=== PATIENT | female | born 1940 | race Caucasian/White ===

== ENCOUNTER 2018-06-28 13:42 | Emergency (ER) | payer MEDICARE, OTHER ==
[2018-06-28 14:39] LABS: ABS Basophils 0 10^3/ul (0-0.2); ABS Eosinophils 0.1 10^3/ul (0-0.6); ABS Lymphocytes 2.4 10^3/ul (1.0-4.8); ABS Monocytes 0.5 10^3/ul (0-0.8); ABS Neutrophils 4.7 10^3/ul (1.5-7.7); ABS Nucleated RBC 0 10^3/ul; Eosinophil % 1.3 %; Hematocrit 41 % (33-41); Hemoglobin 13.9 g/dL (12.0-16.0); Lymphocyte % 30.7 %; Mean Corpuscular HGB Conc 34 g/dL (31-36); Mean Corpuscular Hemoglobin 31 pg (27-31); Mean Corpuscular Volume 91 fL (80-97); Nucleated Red Blood Cells % 0; Platelet Count 169 10^3/uL (150-450); Red Blood Count 4.48 10^6 /uL (3.70-4.87); Red Cell Distribution Width 14 % (10.5-15); White Blood Count 7.7 10^3/uL (3.5-10.8)
[2018-06-28 15:05] LABS: BUN/Creatinine Ratio 20.2 (8-20); EGFR African American 74.8 (>60); EGFR Non-African American 61.8 (>60); Potassium 4.1 mmol/L (3.5-5.0)
--- NOTE | 2018-06-28 15:11 | ED ---
Complex/Multi-Sys Presentation - HPI Summary HPI Summary: 77 year old female presents to the emergency department for evaluation of lower legs swelling. This problem has been present for about a month and is constant. Pt was seen by her primary care this morning who sent her here. She also has a wound on her right lower leg that has been present for several days. Pt also reports SOB. She denies chest pain, cough, orthopnea, fever, chills, N/V/D, numbness, tingling, and palpitations. Pt has a history of breast cancer. She's been in remission for 2 and and a half years and was last seen by her oncologist in March 2018. She also has a history of hypertension and high cholesterol. She is not seen regularly by a hydrometer tester. - History Of Current Complaint Chief Complaint: EDExtremityLower Time Seen by Provider: 06/28/18 14:08 Hx Obtained From: Patient - Allergies/Home Medications Allergies/Adverse Reactions: Allergies Allergy/AdvReac Type Severity Reaction Status Date / Time No Known Allergies Allergy Verified 06/28/18 13:48 PMH/Surg Hx/FS Hx/Imm Hx Previously Healthy: No Cardiovascular History: Reports: Hx Hypercholesterolemia, Hx Hypertension - POORLY CONTROLLED PER PT Respiratory History: Reports: Hx Asthma, Hx Chronic Obstructive Pulmonary Disease (COPD), Other Respiratory Problems/Disorders - O2 2L PRN SOB, COPD Musculoskeletal History: Reports: Hx Arthritis Denies: Hx Osteoporosis Sensory History: Reports: Hx Contacts or Glasses - GLASSES Denies: Hx Hearing Aid Opthamlomology History: Reports: Hx Contacts or Glasses - GLASSES - Cancer History Cancer Type, Location and Year: breast CA 1999 Hx Chemotherapy: No - TAMOXIFEN X5 YEARS, NOW ARIMIDEX Hx Radiation Therapy: Yes - Surgical History Surgery Procedure, Year, and Place: BILAT CATARACTS 1999 [facility] [place]. 1998 LEFT BREAST LUMPECTOMY [facility] [place]. TONSILLECTOMY A CHILD. TUBAL LIGATION Hx Anesthesia Reactions: No Infectious Disease History: No Infectious Disease History: Denies: History Other Infectious Disease, Traveled Outside the [place] in Last 30 Days - Social History Occupation: Retired Lives: Alone Alcohol Use: Rare Substance Use Type: Reports: None Smoking Status (MU): Never Smoked Tobacco Review of Systems Negative: Fever, Chills, Fatigue Negative: Palpitations, Chest Pain Positive: Shortness Of Breath. Negative: Cough Negative: Abdominal Pain, Vomiting, Diarrhea, Nausea Positive: Arthralgia, Edema - lower extremities Positive: Weakness. Negative: Headache, Paresthesia, Numbness, Syncope, Slurred Speech All Other Systems Reviewed And Are Negative: Yes Physical Exam Triage Information Reviewed: Yes Vital Signs On Initial Exam: Initial Vitals Temp Pulse Resp BP Pulse Ox 99.1 F 95 15 151/84 95 06/28/18 13:44 06/28/18 13:44 06/28/18 13:44 06/28/18 13:44 06/28/18 13:44 Vital Signs Reviewed: Yes Appearance: Positive: Well-Appearing, No Pain Distress, Well-Nourished Skin: Positive: Warm, Skin Color Reflects Adequate Perfusion, Dry, Other - hypopigemented patches on the face. Small skin lesion on the right [place], previously drained, with clear fluid. Left chest is post mastectomy Head/Face: Positive: Normal Head/Face Inspection Eyes: Positive: Normal, EOMI, MEGGAN ENT: Positive: Hearing grossly normal, Pharynx normal Neck: Positive: Supple Respiratory/Lung Sounds: Positive: Clear to Auscultation, Breath Sounds Present Cardiovascular: Positive: Pulses are Symmetrical in both Upper and Lower Extremities, Leg Edema Left, Leg Edema Right, Other - regularly irregular rhythm Abdomen Description: Positive: Nontender, Soft, Hernia @ - umbilicus. Hernia is reducible Musculoskeletal: Positive: Normal, Strength/ROM Intact Neurological: Positive: Normal, Sensory/Motor Intact, Alert, Oriented to Person Place, Time Psychiatric: Positive: Normal Diagnostics - Vital Signs Vital Signs Temp Pulse Resp BP Pulse Ox 06/28/18 13:44 99.1 F 95 15 151/84 95 - Laboratory Lab Results: Lab Results 06/28/18 06/28/18 06/28/18 Range/Units 14:29 14:29 14:29 WBC 7.7 (3.5-10.8) 10^3/uL RBC 4.48 (3.70-4.87) 10^6 /uL Hgb 13.9 (12.0-16.0) g/dL Hct 41 (33-41) % MCV 91 (80-97) fL MCH 31 (27-31) pg MCHC 34 (31-36) g/dL RDW 14 (10.5-15) % Plt Count 169 (150-450) 10^3/uL MPV 8.0 (7.4-10.4) fL Neut % (Auto) 60.8 % Lymph % (Auto) 30.7 % [place] % (Auto) 6.8 % Eos % (Auto) 1.3 % Baso % (Auto) 0.4 % Absolute Neuts (auto) 4.7 (1.5-7.7) 10^3/ul Absolute Lymphs (auto) 2.4 (1.0-4.8) 10^3/ul Absolute Monos (auto) 0.5 (0-0.8) 10^3/ul Absolute Eos (auto) 0.1 (0-0.6) 10^3/ul Absolute Basos (auto) 0 (0-0.2) 10^3/ul Absolute Nucleated RBC 0 10^3/ul Nucleated RBC % 0 Sodium 140 (135-145) mmol/L Potassium 4.1 (3.5-5.0) mmol/L Chloride 103 (101-111) mmol/L Carbon Dioxide 30 (22-32) mmol/L Anion Gap 7 (2-11) mmol/L BUN 18 (6-24) mg/dL Creatinine 0.89 (0.51-0.95) mg/dL Est GFR ( Amer) 74.8 (>60) Est GFR (Non-Af Amer) 61.8 (>60) BUN/Creatinine Ratio 20.2 H (8-20) Glucose 149 H (70-100) mg/dL Calcium 10.0 (8.6-10.3) mg/dL Troponin I 0.00 (<0.04) ng/mL B-Natriuretic Peptide 13 (<=100) pg/mL TSH Pending Result Diagrams: 06/28/18 14:29 06/28/18 14:29 Lab Statement: Any lab studies that have been ordered have been reviewed, and results considered in the medical decision making process. - EKG #1 Cardiac Rate: NL - 92 EKG Rhythm: Sinus Rhythm ST Segment: Normal Ectopy: PVCs - frequent Complex Multi-Symp Course/Dx Course Of Treatment: 77 year old female presents with bilateral lower extremities edema and SOB. She was sent by primary care. Exam reveals an irregular heart rhythm and EKG conforms frequent PVCs. Pt also had 2+ lower extremities edema bilaterally. Bedside ultrasound was negative for ascites and CXR was negative for effusion. Remaining labwork performed today was unremarkable. Discussed with Dr. Ott and he agreed to treat pt with lasix 40 mg, metoprolol 50mg, and KCl for excess fluid and frequent PVCs. Also recommended to avoid extra salts, wear compression stockings, and keep legs elevated when possible. Pt to follow up with primary care and schedule an outpatient echocardiogram. - Diagnoses Differential Diagnoses/HQI/PQRI: Metabolic Abnormality, Other - CHF, Afib/ arrhythmia, hypoalbuminemia, CA Provider Diagnoses: PVCs (premature ventricular contractions), Bilateral lower extremity edema Is Visit Related: No - Physician Notifications Discussed Care Of Patient With: Devon Ott - agrees with d/c, will get outpt echo Discharge - Sign-Out/Discharge Documenting (check all that apply): Patient Departure Patient Received Moderate/Deep Sedation with Procedure: No - Discharge Plan Condition: Improved Disposition: HOME Prescriptions: Furosemide TAB* [Lasix TAB*] 40 mg PO DAILY #10 tab Metoprolol Succinate XL TAB* [Toprol XL TAB*] 50 mg PO DAILY #30 tab.xl Potassium Chlor TAB* [Klor Con ER TAB*] 40 meq PO DAILY #10 tab.er Patient Education Materials: Leg Edema (ED), Premature Ventricular Contractions (ED) Referrals: Alyssa Donis MD [Primary Care Provider] - Additional Instructions: Avoid extra salt in your diet. Compression stockings may help, you can obtain these from [employer]. Call your doctor first thing tomorrow to schedule follow-up and outpatient echocardiogram. Return if worse, new symptoms or other concerns. Modest exercises may help. - Billing Disposition and Condition Condition: IMPROVED Disposition: Home - Attestation Statements Document Initiated by Km: No
[2018-06-28 15:24] LABS: INR 0.95 (0.82-1.09)
[2018-06-28 16:06] VITALS: BP 146/89
[2018-06-28 18:05] LABS: TSH (Thyroid Stimulating Horm) 1.6 mcIU/mL (0.34-5.60)
== END 2018-06-28 16:14 | disposition home or self-care (01) ==
LOC: ED 13:42
DX: I49.3 Ventricular premature depolarization (principal); R60.9 Edema, unspecified; Z85.3 Personal history of malignant neoplasm of breast; E78.00 Pure hypercholesterolemia, unspecified; I10 Essential (primary) hypertension; J44.9 Chronic obstructive pulmonary disease, unspecified
CPT/HCPCS: 36415; 71045; 80048; 83880; 84443; 84484; 85025; 85610; 93005; 99283